=== PATIENT | female | born 1990 | race Caucasian/White ===

== ENCOUNTER → 2018-09-10 20:10 | Observation (INO) ==
[2018-09-10 17:54] VITALS: BP 117/62
--- NOTE | 2018-09-10 18:12 | OB/GYN Progress Note ---
Date of Encounter: 09/10/18 Time of Encounter: 18:09 - Assessment and Plan (1) 20 weeks gestation of Current Visit: Yes Status: Acute Urine pending Vaginosis panel pending Anticipate discharge home with PTL precautions and medications as needed if urine or vaginosis panel positive Follow up as scheduled in the office and PRN POC per consult with Dr Rosales. (2) Vaginal discharge during in second trimester Current Visit: Yes Status: Acute Subjective - Subjective Principal diagnosis: Vaginal Spotting Interval history: adri Zepeda at 20 weeks and 0 days presents to triage with c/o spotting with wiping today x 1. She states positive movement. She denies any pain, discharge, headaches, vision changes, epigastric pain, leaking of fluid, and contractions or cramping. She denies recent intercourse. She is seen by Dr Alonzo for her care. She has a history of a DVT prior to pregnancies and is Lovenox. She also has a history of prior LTCS. Antepartum ROS: movement normal Objective - Vital Signs Vital Signs: Vital Signs Temp Pulse Resp BP 09/10/18 17:48 97.7 F 82 14 117/62 Intake and Output 09/10/18 09/10/18 09/10/18 07:59 15:59 23:59 Other: Weight 94.6 kg Patient Weight 09/10/18 23:59 Weight 94.6 kg - Exam FHR comments: FHTs No contractions per palpation or toco Abdomen: Present: normal appearance, soft, gravid. Absent: tenderness Uterus: Present: normal. Absent: firm, tenderness Cervical dilation: closed per spec exam Comments: Spec exam; no blood noted to urethra, vaginal vault, or cervix. Moderate thick tracy/white malodorous discharge in vaginal vault
[2018-09-10 18:34] LABS: Bilirubin,Urine Negative (Negative); Blood,Urine Trace (Negative); Clarity,Urine Cloudy (Clear); Color,Urine Yellow (Yellow); Glucose,Urine (UA) Normal (Normal); Ketones,Urine Negative (Negative); Leukocyte Esterase,Urine Small (Negative); Nitrite,Urine Negative (Negative); Protein,Urine Negative (Neg-Trace); Specific Gravity,Urine 1.007 (1.010-1.025); Urobilinogen,Urine Normal (Normal)
[2018-09-10 19:07] LABS: Amphetamine Screen,Urine Negative ng/mL (Cutoff=1000); Barbiturate Screen,Urine Negative ng/mL (Cutoff=200); Benzodiazepines Screen,Urine Negative ng/mL (Cutoff=200); Cannabinoid Screen,Urine Negative ng/mL (Cutoff = 50); Cocaine Screen,Urine Negative ng/mL (Cutoff= 300); Opiate Screen,Urine Negative ng/mL (Cutoff=300); Phencyclidine Screen,Urine Negative ng/mL (Cutoff=25)
[2018-09-10 19:42] LABS: Candida DNA Not Detected (Not Detect); Gardnerella DNA Not Detected (Not Detect); Trichomonas DNA DETECTED (Not Detect)
[~2018-09-10 20:10] MED LIST: Ondansetron ODT 4 MG TAB.RAPDIS SL STA; metroNIDAZOLE 500 MG TABLET PO STA
== END | disposition home or self-care (01) ==
LOC: 1NENULAB
PROVIDERS: ADMIT Obstetrics & Gynecology; ATTEND Obstetrics & Gynecology

== ENCOUNTER 2018-12-25 15:01 | Observation (INO) ==
[2018-12-25 16:00] LABS: Amphetamine Screen,Urine Negative ng/mL (Cutoff=1000); Barbiturate Screen,Urine Negative ng/mL (Cutoff=200); Benzodiazepines Screen,Urine Negative ng/mL (Cutoff=200); Cannabinoid Screen,Urine Negative ng/mL (Cutoff = 50); Cocaine Screen,Urine Negative ng/mL (Cutoff= 300); Opiate Screen,Urine Negative ng/mL (Cutoff=300); Phencyclidine Screen,Urine Negative ng/mL (Cutoff=25)
[2018-12-25 16:11] LABS: Bacteria,Urine Many per hpf (None-Few); Bilirubin,Urine Negative (Negative); Blood,Urine Negative (Negative); Clarity,Urine Cloudy (Clear); Color,Urine Yellow (Yellow); Glucose,Urine (UA) Normal (Normal); Hyaline Casts,Urine None Seen per lpf (None-Few); Ketones,Urine 80 mg/dL (Negative); Leukocyte Esterase,Urine Small (Negative); Nitrite,Urine Negative (Negative); Protein,Urine Trace mg/dL (Neg-Trace); Specific Gravity,Urine 1.024 (1.010-1.025); Squamous Epithelial Cell,Urine Many per lpf (None-Few); Urobilinogen,Urine Normal (Normal); WBC,Urine 30-50 per hpf (0-3)
[2018-12-25 16:23] LABS: RBC,Urine 0-3 per hpf (0-3)
[2018-12-25 21:34] LABS: Candida DNA Not Detected (Not Detect); Gardnerella DNA Not Detected (Not Detect); Trichomonas DNA Not Detected (Not Detect)
== END 2018-12-25 20:10 | disposition home or self-care (01) ==
LOC: 1NENULAB
PROVIDERS: ADMIT Student in an Organized Health Care Education/Training Program; ATTEND Student in an Organized Health Care Education/Training Program

== ENCOUNTER 2019-01-08 04:22 | Inpatient (IN) ==
--- NOTE | 2019-01-08 03:59 | OB/GYN History & Physical ---
Date of Encounter: 01/08/19 Time of Encounter: 03:57 Assessment and Plan (1) 37 weeks gestation of Current visit: Yes Status: Acute 28yo at 37+1wks GA who presents SROM'd, in active labor 1. TOLAC - cecy ~6.5# - GBS negative, VTX presentation - SROM'd clear fluid after 1600 (01/07) - denies issues with vaginal bleeding - contractions q2-5 minutes, adequate movement - hx of prior CS for BREECH presentation; prime TOLAC candidate (early term, prior CS for presentation, SROM'd) - epidural discussed with patient, will consult anesthesia given blood clot hx - desires TUBAL LIGATION, OK to perform or laparoscopically after PP visit 2. HX OF DVT - patient reports hx of blood clot at age 17 and 22 - patient has been followed by [facility] and Dr. Alonzo - currently taking lovenox SQ ppx dose BID - last dose was administered at 2200 on 01/07 3. A1GDM - co-managed by [facility] - diet-controlled DM per patient - failed 1hr GTT and 3hr GTT - patient missed by recent US with [facility] on 01/06 - cecy ~6.5#-7# Dispo: Patient admitted to labor and delivery for TOLAC. SROM'd at 37 wks GA with 1 prior CS for breech presentation. MD JYOTSNA History of Present Illness Chief complaint: 28YO TOLAC WITH CONTRACTION(S) and SROM HPI: Ms. Kaur is a 28 year old female at 37+1wks GA with hx of 1 prior CS at term for breech delivery (measuring 6#11oz). GBS negative. Patient with UTD PNC with Dr. Alonzo. Patient consented for TOLAC today. Reason for first CS delivery was 2/2 presentation of only. Patient presents today with contraction(S), leaking of fluids (confirmed SROM), and already at 1-2cm dilation. Because her last delivery was not 2/2 CPD or maternal anatomy, this is a prime candidate for a TOLAC. Consent was signed with the patient. SHe is aware of the risk of rCS should there be any concern for well-being. SHe is also aware that there is a risk of uterine rupture, but given her gestational age and size of infant, this is a smaller percentage then someone who is completely term (39+wks GA) and uncontrolled GDM. Patient was diet controlled ONLY, did not require medication for her A1GDM. Co- managed patient with MFM ([facility]). VERTEX presentation today, GBS negative. Will plan for expectant management. OK to start pitocin if patient is to stop progressing. OK for anesthesia to be consulted for patient to have epidural. OF NOTE: patient does have a hx of two prior blood clots at age 17 and 22. Patient is currently on twice daily prophylactic SQ lovenox injection(S). Her last injection was administered at 2200 on (01/07). Past Med Surg Social Fam HX - Past Medical History Medical history: DVT, kidney stones Additional medical history: dvt x 2, hypothyroidism Psychiatric history: anxiety, bipolar, depression - Past Surgical History Surgical History: Additional surgical history: C/S 01/29/2015 - Social History Smoking Status: Current every day smoker Packs per day: 1/2 Smokeless Tobacco Status: No Alcohol use: none Drug use: none - Family History Mother Living Status: Still Living Hx Family Cardiac Disorders: Yes (chronic hypertension) Hx Family Respiratory Disorders: No Hx Family Cancer: No Hx Family GI Disorders: No Hx Family Endocrine Disorder: Yes (diabetes) Hx Family Neuromuscular Disorders: No Hx Family Neurologic Disorders: No Hx Family HEENT Disorders: No Hx Family Autoimmune Disorders: No Obstetrical History - Pregnancies : 2 Para: 1 Term: 1 : 0 Ab's: 0 Livin Medications and Allergies Enoxaparin [Lovenox] 1 % SQ BID 11/18/18 [History] Vit 108/Iron/Folic AC [ One Tablet] 1 tab PO DAILY 11/18/18 [History] Levothyroxine [Synthroid] 125 mcg PO 0630 01/08/19 [History] Allergy/AdvReac Type Severity Reaction Status Date / Time No Known Allergies Allergy Verified 01/08/19 03:34 Exam - Constitutional Constitutional: well developed, well nourished, no acute distress, average body habitus - HEENT HEENT: Normocephaly, Mucus Membranes Moist - Neck Neck exam: full ROM - Lungs Respiratory exam: CTAB - Cardiovascular Cardiovascular exam: RRR - Abdomen Abdomen: Present: bowel sounds normal - Extremities Extremities exam: full ROM Deep Tendon Reflex Grade: 2+ Normal - Vagina Vagina: Present: normal moisture - Cervix Dilation: 2 Effacement: 60 Station: -2 - Uterus Uterus exam: Present: normal size, normal contour - Anus/Rectum Anus/Rectum: Present: normal perianal skin Results All other labs normal.
[~2019-01-08 04:22] MED LIST changes: +Famotidine 20 MG/2 ML VIAL IVP PRN; +Metoclopramide 10 MG/2 ML VIAL IVP PRN; +Naloxone 0.4 MG/ML INJ IVP PRN; -Ondansetron ODT 4 MG TAB.RAPDIS SL STA; +Ringers Solution, Lactated 1,000 ML IVC SCH; -metroNIDAZOLE 500 MG TABLET PO STA
[2019-01-08 04:45] LABS: Basophils % 0.1 %; Eosinophils % 0.3 %; Hematocrit 40.9 % (35.3-44.9); Hemoglobin 13.5 g/dL (11.5-15.4); Immature Granulocytes % 1.3 % (0-4); Lymphocytes # 1.8 K/mcL (0.6-4.6); Lymphocytes % 18.9 %; Mean Corpuscular Hemoglobin 28.4 pg (28.0-33.3); Mean Corpuscular Volume 86.1 fL (83.0-100.0); Mean Platelet Volume 10.9 fL (9.4-12.4); Monocytes # 0.5 K/mcL (0.0-1.3); Monocytes % 5.1 %; Platelet Count 215 K/mcL (140-400); Red Blood Count 4.75 M/mcL (3.82-4.97); Red Cell Distribution Width 15.6 % (11.5-14.5); Segmented Neutrophils % 74.3 %; White Blood Count 9.4 K/mcL (4.3-11.1)
[2019-01-08 04:51] LABS: Amphetamine Screen,Urine Negative ng/mL (Cutoff=1000); Barbiturate Screen,Urine Negative ng/mL (Cutoff=200); Benzodiazepines Screen,Urine Negative ng/mL (Cutoff=200); Cannabinoid Screen,Urine Negative ng/mL (Cutoff = 50); Cocaine Screen,Urine Negative ng/mL (Cutoff= 300); Opiate Screen,Urine Negative ng/mL (Cutoff=300); Phencyclidine Screen,Urine Negative ng/mL (Cutoff=25)
[2019-01-08] MEDS ORDERED: *HR* Nalbuphine 10 MG/ML AMPUL IM PRN (05:14)
[2019-01-08] MEDS: *HR* Nalbuphine 10 MG/ML AMPUL IV PRN ×2 (05:37→08:36)
--- NOTE | 2019-01-08 08:45 | Event Note ---
Date of Encounter: 01/08/19 Time of Encounter: 08:34 28 yo @ 37.1 wga currently undergoing TOLAC. She's uncomfortable with her ctxs & requests IV pain meds. She desires epidural in future. SVE: /-2 FHRT: 125/mod ngozi/+accels/no decels TOCO: q 2-4 mins A/P: 1. TOLAC - Pain control PRN - OK for epidural 12 hrs after last 40mg Lovenox dose, 1000 today per Anesthesia - Cont EFM & TOCO - Consider initiating oxytocin in future 2. HX OF DVT - H/o LE DVTs at age 17 and 22 s/p OCPs, no coagulopathy w/u performed to pt's knowledge - On Lovenox SQ 40mg BID, last dose @ 2200 on 01/07 - Plan to restart 6-12hrs after delivery 3. A1GDM - Well controlled antepartum - cecy ~6.5#-7# Cris Barger DO
[2019-01-08] MEDS ORDERED: Epidural Premix (fent/bupiv) 110 ML EP ONE (10:05)
[2019-01-08] MEDS ORDERED: Epidural Premix (fent/bupiv) 110 ML EP SCH (10:15)
--- NOTE | 2019-01-08 10:48 | Anesthesia Evaluation PreOp ---
Date of Encounter: 01/08/19 Time of Encounter: 10:00 - Past History Planned Operation: ANA Cardiac History: Denies any Significant Hx Pulmonary History: Other (HO DVT AT 17Y.O. PROPHYLAXIS LOVENOX DURING , LAST DOSE 01/07/19 2200) BUTTON MAKER History: Denies Any Significant HX Other Medical History: Denies Any Significant HX, Other (GDM DIET CONTROLLED) Anesthesia History: No Prior Anesthetic Complications, Past Anesthesia : Yes Test: Positive Alcohol Use: none Drug use: none Medications and Allergies Enoxaparin [Lovenox] 1 % SQ BID 11/18/18 [History] Vit 108/Iron/Folic AC [ One Tablet] 1 tab PO DAILY 11/18/18 [History] Levothyroxine [Synthroid] 125 mcg PO 0630 01/08/19 [History] Allergy/AdvReac Type Severity Reaction Status Date / Time No Known Allergies Allergy Verified 01/08/19 03:34 - Meds/Allergy Pre-op Review Medications Reviewed: Yes Allergies Reviewed: Yes Beta Blockers on Current Med List: No Anesthesia Results - Labs 01/08/19 04:15 01/08/19 04:15 Anesthesia Exam - HEENT Pupil (Motor): Pupils equal Mallampati: II Teeth: Normal Oral Opening: Greater than 3 - BUTTON MAKER LOC: Oriented BUTTON MAKER Motor: Normal RUE, Normal LUE, Normal RLE, Normal LLE, Normal Face BUTTON MAKER Sensory: Normal: RUE, LUE, RLE, LLE, Face - Cardiac Rhythm: Regular Murmur: None JVD: No Carotid Bruit: No - Pulmonary Breath Sounds: bilateral Clear Respiratory Effort: Symmetrical Anesthesia Assess/Plan ASA Score: 2 Level of consciousness: Cooperative Anesthetic Plan: Epidural
--- NOTE | 2019-01-08 10:52 | Anesthesia Procedures ---
Date of Encounter: 01/08/19 Time of Encounter: 10:00 Procedures: Anesthesia - Epidural/Spinal Patient ID/Chart reviewed: Yes Patient examined: Yes OB Eval: Gestational age: 37.1 OB Eval: : 2 OB Eval: Hx Para: 1 OB Eval: Dilated at (cm): 3 OB Eval: Contractions: Non-stressed pattern Consent Obtained: Yes Site Prep: Aseptic Technique, Sterile prep and drape, Povidone-Iodine 1% Patient position: upright Amount of Local Anesthetic used: 3 Touhy Needle Gauge: 18 Touhy Needle Depth (cm): 6 Catheter Depth at Skin (cm): 12 Test Dose (1.5% Lido + Epi): Volume given (mls): 3 Test Dose Result: Negative Loading Dose: 0.25% Marcaine (mls): 5 Loading Dose Administered: Thru Catheter Infusion Med: 0.125% Bupivacaine w/ 2 mcg/ml Fentanyl Infusion Rate (mls/hr): [address]: Tegaderm, Tape Interspace Used: L4-L5 Loss of Resistance (SUBHASH): Yes Blood: No CSF: No Paresthesia: No Procedure: tolerated procedure well VSS FHTS throughout see nursing notes.
[2019-01-08] MEDS ORDERED: EPHEDrine 50 MG/ML VIAL ONE (11:50)
[2019-01-08] MEDS ORDERED: Ondansetron 4 MG/2 ML VIAL ONE (11:50)
[2019-01-08] MEDS ORDERED: Oxytocin 20 units/ LR 1000 mL 20 UNIT/1,000 ML BAG IVC SCH ×2 (12:00→20:09)
--- NOTE | 2019-01-08 17:10 | OB/GYN Procedure Note ---
Delivery - Delivery Date: 01/08/19 Provider: Cris Barger Intrapartum events: none Delivery induction: none Delivery augmentation: pitocin Delivery monitor: external FHT, external uterine Anesthesia: epidural Quantitated Blood Loss: 500 - (s) Infant A Infant Delivery Date: 01/08/19 Infant Delivery Time: 16:29 Presentation: vertex Position: OA Route of delivery: Gender: Male Viability: Viable Pounds: 5 Ounces: 6 Weight Gram: 2425 kg at 1 minute: 8 at 5 mins: 9 Shoulder Dystocia: not encountered Placenta: spontaneous Cord: nuchal cord, 3 umbilical vessels, delivered through nuchal - Repair Episiotomy: none Laceration Description: Periurethral (B/L 1st degree), Perineal - 2nd Degree - Complications Delivery complications: uterine atony Delivery comments: The patient progressed to complete with epidural anesthesia. She pushed to deliver a live male over an intact perineum. The head delivered in OA position. A nuchal cord was identified and the body was delivered through it. The right anterior shoulder delivered with ease followed by the rest of the body. The 's mouth was bulb suctioned after safe transfer to the maternal abdomen for further care by RN and mother-baby skin to skin time. After pulsation of the umbilical cord had ceased, the cord was clamped 2 and cut by the father. The placenta was expressed intact and held for possible testing. After delivery of the placenta a heavy flow of blood was noted from the cervix, despite oxytocin infusion. 0.2 mg of Methergine was given IM. The vaginal bleeding significantly decreased after this. The cervix, vagina and perineum were inspected. Hemostatic bilateral periurethral lacerations were noted, not repaired. A 1-1/2 cm right-sided second-degree perineal laceration was noted and repaired with 3-0 Vicryl in a running locked fashion. APGARS 8/9. Weight 5# 6 ozs. EBL was [address] Barger was present for delivery. - Disposition Mom disposition: stable in LDR Agenda disposition: stable in LDR
[2019-01-08] MEDS ORDERED: Methylergonovine 0.2 MG/ML AMPUL IM ONE (18:37)
[2019-01-08] MEDS ORDERED: miSOPROStol 100 MCG TABLET PO ONE (18:37)
[2019-01-08] MEDS ORDERED: *HR* Oxytocin 10 UNIT/ML VIAL IM ONE (18:37)
[2019-01-08] MEDS ORDERED: Rho Immune Globulin 1,500 UNIT SYRINGE IM PRN (20:09)
[2019-01-08] MEDS ORDERED: Measles/Mumps/Rubella Vacc 0.5 ML VIAL SQ PRN (20:09)
[2019-01-08] MEDS: *HR* Enoxaparin 40 MG/0.4 ML SYRINGE SQ SCH (23:03)
[2019-01-09 05:47] LABS: Basophils % 0.2 %; Eosinophils # 0.1 K/mcL (0.0-0.6); Eosinophils % 0.5 %; Hematocrit 34.1 % (35.3-44.9); Immature Granulocytes % 0.6 % (0-4); Lymphocytes # 1.5 K/mcL (0.6-4.6); Lymphocytes % 15.6 %; Mean Corpuscular HGB Conc 33.1 g/dL (31.6-35.5); Mean Corpuscular Hemoglobin 28.3 pg (28.0-33.3); Mean Corpuscular Volume 85.5 fL (83.0-100.0); Mean Platelet Volume 10.7 fL (9.4-12.4); Monocytes # 0.6 K/mcL (0.0-1.3); Monocytes % 6.4 %; Neutrophils # 7.4 K/mcL (1.6-8.9); Platelet Count 184 K/mcL (140-400); Red Blood Count 3.99 M/mcL (3.82-4.97); Red Cell Distribution Width 15.5 % (11.5-14.5); Segmented Neutrophils % 76.7 %; White Blood Count 9.6 K/mcL (4.3-11.1)
[2019-01-09 06:02] LABS: Hemoglobin 11.3 g/dL (11.5-15.4)
[2019-01-09] MEDS ORDERED: Ringers Solution, Lactated 1,000 ML ONE (07:06)
--- NOTE | 2019-01-09 08:16 | Anesthesia Evaluation PreOp ---
Date of Encounter: 01/09/19 Time of Encounter: 08:20 - Past History Planned Operation: BPS Cardiac History: Other (Hx DVT on Lovenox) Pulmonary History: Denies Any Significant HX ROTARY ENGRAVER History: Denies Any Significant HX Other Medical History: Denies Any Significant HX, Other (Obese) Anesthesia History: No Prior Anesthetic Complications : No Alcohol Use: none Drug use: none Medications and Allergies Enoxaparin [Lovenox] 1 % SQ BID 11/18/18 [History] Vit 108/Iron/Folic AC [ One Tablet] 1 tab PO DAILY 11/18/18 [History] Levothyroxine [Synthroid] 125 mcg PO 0630 01/08/19 [History] Allergy/AdvReac Type Severity Reaction Status Date / Time No Known Allergies Allergy Verified 01/08/19 03:34 - Meds/Allergy Pre-op Review Medications Reviewed: Yes Allergies Reviewed: Yes Beta Blockers on Current Med List: No Anesthesia Results - Labs 01/09/19 05:25 01/08/19 04:15 Anesthesia Exam Vital Signs/O2 Sat/Glucose, Most Current Temp Pulse Resp BP Pulse Ox 01/09/19 04:55 98.1 F 75 16 105/65 96 Height: 5'2 Weight: 192 lbs NPO (# of Hours): MN Pain Scale: 0 - HEENT Pupil (Motor): Pupils equal, EOMI Mallampati: II Teeth: Normal Oral Opening: Greater than 3 - ROTARY ENGRAVER LOC: Oriented ROTARY ENGRAVER Motor: Normal RUE, Normal LUE, Normal RLE, Normal LLE, Normal Face ROTARY ENGRAVER Sensory: Normal: RUE, LUE, RLE, LLE, Face - Cardiac Rhythm: Regular Murmur: None JVD: No Carotid Bruit: No - Pulmonary Breath Sounds: bilateral Clear Respiratory Effort: Symmetrical Anesthesia Assess/Plan ASA Score: 2 Level of consciousness: Cooperative, Oriented Anesthetic Plan: General, Epidural Autologous Blood: No Monitoring Plan: Standard Monitors Recovery Plan: PACU (Discussed GA, possible RA, discussed high likelihood epidural not viable, agrees to proceed)
[2019-01-09] MEDS ORDERED: Lidocaine -MPF 2% 2 ML VIAL ONE (08:17)
[2019-01-09] MEDS ORDERED: Ondansetron 4 MG/2 ML VIAL ONE (08:17)
[2019-01-09] MEDS ORDERED: Dexamethasone 4 MG/ML VIAL ONE (08:17)
[2019-01-09] MEDS ORDERED: *HR* Succinylcholine 200 MG/10 ML VIAL IVP ONE (08:17)
[2019-01-09] MEDS ORDERED: *HR* FentaNYL (PF) 100 MCG/2 ML VIAL ONE (08:18)
[2019-01-09] MEDS ORDERED: *HR* Midazolam HCl 2 MG/2 ML VIAL ONE (08:18)
[2019-01-09] MEDS ORDERED: *HR* Propofol 200 MG/20 ML VIAL IVP ONE (08:18)
[2019-01-09] MEDS ORDERED: Lidocaine HCL 4 ML Topical Solution (Laryng-O-Jet Kit Sterile Pak) TP ONE (08:20)
[2019-01-09] MEDS ORDERED: Ketorolac 30 MG/ML VIAL ONE (08:21)
[2019-01-09] MEDS ORDERED: Famotidine 20 MG/2 ML VIAL ONE (08:23)
[2019-01-09] MEDS ORDERED: Acetaminophen IV 1,000 MG/100 ML INFUS..BTL ONE (08:23)
[2019-01-09] MEDS ORDERED: *HR* Rocuronium Bromide 50 MG/5 ML VIAL ONE (08:23)
[2019-01-09] MEDS ORDERED: Neostigmine Methylsulfate 3 MG/3 ML SYRINGE ONE (08:24)
[2019-01-09] MEDS ORDERED: Bupivacaine/EPI 1:200k 0.25%PF 10 ML VIAL INFILT ONE (08:48)
[2019-01-09] MEDS ORDERED: Prenatal Vit/FA 1 EACH TABLET PO SCH (09:00)
[2019-01-09] MEDS ORDERED: *HR* Phenylephrine 10 MG/ML VIAL ONE (10:07)
[2019-01-09] MEDS ORDERED: *HR* Promethazine 25 MG/ML VIAL IVP PRN (10:32)
[2019-01-09] MEDS ORDERED: Ondansetron 4 MG/2 ML VIAL IVP ONE (10:32)
[2019-01-09] MEDS ORDERED: *HR* OxyCODONE Immed Rel 5 MG TABLET PO PRN (10:32)
--- NOTE | 2019-01-09 11:01 | OB/GYN Procedure Note ---
Laparoscopy Procedure - Diagnosis Date of procedure: 01/09/19 Pre-op diagnosis: other (Bilateral partial salpingectomy (), NOT laparoscopic.) - Procedure Laparoscopy procedure: other (Attempted bilateral partial salpingectomy via umbilical mini-laparoscopy, single incision ~4cm in diameter.) Surgeon: Daksha Braun Was there an dietetic assistant present: No Anesthesia Type: General Estimated blood loss (cc): 5 Complications: intraoperative hemorrhage (Able to safely and adequately enter the abdominal cavity however omentum significantly impeding visualization of the adnexa and appeared to be tacked down inferiorly. Concern for adhesion(S) from prior CS. Despite adequate palpation of BOTH adnexa and tubes, we were unable to grasp with reg retractors safely for tubal salpingectomy.) Specimens: other (none.) Disposition: PACU Narrative: OPERATIVE REPORT: DIAGNOSIS: TUBAL STERILIZATION, PROCEDURE ATTEMPTED: BILATERAL PARTIAL SALPINGECTOMY, POSTOPERATIVE DX: TUBES WITH PATENCY, UNABLE TO STERILIZE SURGEON: DAKSHA BRAUN MD EBL: 5ML UOP: STRAIGHT CATH'D PREOPERATIVELY ANESTHESIA: GENERAL SPECIMENS: NONE PROCEDURE DETAILS: PATIENT WAS HEAVILY COUNSELED PRIOR TO PERFORMANCE OF THE TUBAL STERILIZATION REGARDING RISKS OF THE PROCEDURE, RISK OF REGRET, OTHER OPTIONS FOR CONTRACEPTION, AND THE POTENTIAL FOR FAILURE. PATIENT WAS AWARE PRIOR TO PERFORMING THE PROCEDURE THAT WE MAY NOT BE ABLE TO ADEQUATELY VISUALIZE EITHER ADNEXA WITHOUT EXTENDING THE TUBAL LIGATION INCISION TO BECOME AN OPEN PROCEDURE. THE PATIENT WAS AWARE OF THIS RISK AND WAS OKAY WITH ATTEMPTING IT REGARDLESS. SHE WAS TAKEN TO THE OR WHERE GENERAL ANESTHESIA WAS FOUND TO BE ADEQUATE. 4CM INCISION WAS MADE HORIZONTALLY, INFERIORLY TO THE UMBILICUS. USING S-RETRACTORS AT EITHER ANGLE WE DISSECTED DOWN TO THE LEVEL OF THE FASCIA. USING JAMILA PICK UPS, WE TENTED UP THE FASCIA, AND ENTERED THE ABDOMEN WITH METZENBAUM SCISSORS. TWO SUTURES WERE PLACED AT EITHER SIDE OF THE FASCIAL INCISION. USING S RETRACTORS, WE CONTINUED TO DISSECT DOWN TO THE LEVEL OF THE OMENTUM AND PERITONEUM. WE WERE ABLE TO ENTER THE ABDOMEN AND APPRECIATED BILATERAL ADNEXA AND TUBES BUT GIVEN BODY HABITUS AND SCAR TISSUE, WE WERE UNABLE TO SAFELY BRING THE TUBES TO THE LEVEL OF VISIBILITY AND REMOVAL. HEMOSTASIS WAS APPRECIATED PRIOR TO CLOSURE OF THE FASCIA. WE THEN USED 3-0 CHROMIC SUTURE TO CLOSE SUBCUTANEOUS, AND 3-0 VICRYL ON THE SUBCUTICULAR SKIN INCISION. DERMABOND USED ON THE SKIN INCISION. HEMOSTASIS WAS AGAIN APPRECIATED. PATIENT WAS SENT TO PACU FOR RECOVERY AND BACK TO . DAKSHA BRAUN MD OBGYN
--- NOTE | 2019-01-09 11:14 | Anesthesia Evaluation Post Op ---
Date of Encounter: 01/09/19 Time of Encounter: 11:14 - Vital Signs Vital Signs: Vital Signs - Last 8 Hours Temp Pulse Resp BP Pulse Ox 01/09/19 11:04 70 16 118/65 100 01/09/19 10:54 85 18 116/65 99 01/09/19 10:44 98.9 F 73 16 105/53 95 01/09/19 08:25 97.9 F 79 16 109/64 96 01/09/19 07:35 97.6 F 76 14 103/59 98 01/09/19 04:55 98.1 F 75 16 105/65 96 Intake and Output 01/08/19 01/09/19 01/09/19 23:59 07:59 15:59 Output Total 300 / 300 450 / 455 5 / 455 Balance -300 / -300 -450 / -455 -5 / -455 Output: Urine 300 / 300 450 / 450 Estimated Blood Loss 5 / 5 Other: Weight 87.3 kg Patient Weight 01/09/19 23:59 Weight 87.3 kg - Lungs Lungs: Clear Ascult./Percussion - Airway Airway: Non-obstructed - Cardiovascular Regular Rate, Baseline Rhythm - Mental Status Mental Status: Alert & Oriented, Answers Appropriately - Pain Pain Scale: 5 (tolerable with pain meds ) Pain Scale used: Numeric (1 - 10) - Nausea Vomiting Nausea Vomiting: Not Present - Hydration Hydration: Tolerates oral liquids, Ice chips - Discharge PostOp Status: Transfer Patient to floor
--- NOTE | 2019-01-09 11:42 | Discharge Summary ---
Date of Encounter: 01/09/19 Time of Encounter: 11:36 - Discharge Diagnosis (1) 37 weeks gestation of Priority: Primary Status: Acute Comments: 28YO FEMALE S/P AT 37+1WKS GA, DISCHARGED TO HOME TODAY ON PPD#1. PATIENT WAS MEETING ALL MILESTONES FOR DISCHARGE. ON PPD#1 SHE HAD AN ATTEMPTED BPS BUT GIVEN BODY HABITUS AND OMENTAL SCARRING WE WERE UNABLE TO SUCCESSFULLY DO SO. WE DISCUSSED LAPAROSCOPY WITH THE PATIENT <6WKS PP FOR MEDICAID COVERAGE. PATIENT WAS AMBULATING, TOLERATING REGULAR DIET, PASSING FLATUS. WE DISCUSSED HAVING A DEPO-PROVERA INJECTION UPON ADMISSION FOR CONTRACEPTION UNTIL SHE IS SCHEDULED FOR A TUBAL LIGATION BY LAPAROSCOPY. BABY WAS DOING WELL AT THE TIME OF DISCHARGE. HGB WAS STABLE. PATIENT TO F/U WITH OBGYN IN 2 WEEKS FOR SCHEDULING LAPAROSCOPIC TUBAL LIGATION. GIVEN PATIENT WITH HX OF DVT AT AGE 17 AND 22YO, SHE WILL CONTINUE HER PP LOVENOX (DAILY). PATIENT WITH MEDS AT GIVEN. OK TO GIVE 1 DOSE PRIOR TO DC TODAY THIS WAS HELD FOR ATTEMPTED BPS. MD JYOTSNA - Discharge Medications Prescriptions: No Action Vit 108/Iron/Folic AC [ One Tablet] 1 tab PO DAILY Enoxaparin [Lovenox] 1 % SQ BID Levothyroxine [Synthroid] 125 mcg PO 0630 Home Medications: Enoxaparin [Lovenox] 1 % SQ BID 11/18/18 [History] Vit 108/Iron/Folic AC [ One Tablet] 1 tab PO DAILY 11/18/18 [History] Levothyroxine [Synthroid] 125 mcg PO 0630 01/08/19 [History] Allergies/Adverse Reactions: Allergy/AdvReac Type Severity Reaction Status Date / Time No Known Allergies Allergy Verified 01/08/19 03:34 Data Procedures and tests throughout hospitalization: Laboratory Tests 01/08/19 01/08/19 01/08/19 04:15 04:15 04:15 WBC 9.4 RBC 4.75 Hgb 13.5 Hct 40.9 MCV 86.1 MCH 28.4 MCHC 33.0 RDW 15.6 H Plt Count 215 MPV 10.9 Immature Gran % 1.3 Seg Neutrophils % 74.3 Lymphocytes % 18.9 Monocytes % 5.1 Eosinophils % 0.3 Basophils % 0.1 Neutrophils # 7.0 Lymphocytes # 1.8 Monocytes # 0.5 Eosinophils # 0.0 Basophils # 0.0 Glucose 74 Urine Opiates Screen Negative Ur Buprenorphine Scrn Negative Ur Barbiturates Screen Negative Ur Phencyclidine Scrn Negative Ur Amphetamines Screen Negative U Benzodiazepines Scrn Negative Urine Cocaine Screen Negative U Marijuana (THC) Screen Negative Ur Drug Screen Interp See Below 01/09/19 05:25 WBC 9.6 RBC 3.99 Hgb 11.3 L D Hct 34.1 L MCV 85.5 MCH 28.3 MCHC 33.1 RDW 15.5 H Plt Count 184 MPV 10.7 Immature Gran % 0.6 Seg Neutrophils % 76.7 Lymphocytes % 15.6 Monocytes % 6.4 Eosinophils % 0.5 Basophils % 0.2 Neutrophils # 7.4 Lymphocytes # 1.5 Monocytes # 0.6 Eosinophils # 0.1 Basophils # 0.0 Glucose Urine Opiates Screen Ur Buprenorphine Scrn Ur Barbiturates Screen Ur Phencyclidine Scrn Ur Amphetamines Screen U Benzodiazepines Scrn Urine Cocaine Screen U Marijuana (THC) Screen Ur Drug Screen Interp Labs on day of discharge: Labs from last 24 hours 01/09/19 05:25 WBC 9.6 RBC 3.99 Hgb 11.3 L D Hct 34.1 L MCV 85.5 MCH 28.3 MCHC 33.1 RDW 15.5 H Plt Count 184 MPV 10.7 Immature Gran % 0.6 Seg Neutrophils % 76.7 Lymphocytes % 15.6 Monocytes % 6.4 Eosinophils % 0.5 Basophils % 0.2 Neutrophils # 7.4 Lymphocytes # 1.5 Monocytes # 0.6 Eosinophils # 0.1 Basophils # 0.0 Date of admission: 01/08/19 04:22 Primary care physician: GAVIN Consults: 01/08/19 20:09 Consult to Medical Program Specialist [CONS] Routine Comment: Vaginal delivery, consult needed Discharging clinician: Renetta Becerra Anticipated date of discharge: 01/09/19 - Patient Status Disposition: Home, Self-Care Condition: Good Functional capacity at discharge: independent ambulation Overall status at discharge: patient is progressing back to baseline - Discharge Instructions Hospital Course DINKEY DRIVER Time Attestation: Total time spent providing and/or coordinating discharge services: Exam - Constitutional Vitals: Temp Pulse Resp BP Pulse Ox 97.3 F L 65 14 115/63 98 01/09/19 11:14 01/09/19 11:14 01/09/19 11:14 01/09/19 11:14 01/09/19 11:14 General appearance IM: A&O X 3 - Respiratory Respiratory exam: Present: CTAB - Cardiovascular Cardiovascular exam IM: Present: RRR - GI/Abdominal GI/Abdominal exam IM: normal bowel sounds Incision: normal, dry, intact - Rectal Rectal exam: deferred - Uterus Position: 2 Fingers Below Umbilicus - Extremities Exam Extremities exam IM: Present: full ROM, normal inspection - Neurological Exam Neurological exam: CN II-XII intact - VTE Reasons for not Prescribing Prophylaxis: Medical contraindication
[2019-01-09] MEDS: Ibuprofen 600 MG TABLET PO SCH ×2 (12:36→12:49)
[2019-01-09] MEDS: *HR* Enoxaparin 40 MG/0.4 ML SYRINGE SQ SCH (12:37)
[2019-01-09] MEDS: Acetaminophen 325 MG TABLET PO SCH (12:50)
[2019-01-09 14:53] VITALS: BP 105/62
== END 2019-01-09 18:38 | disposition home or self-care (01) | DRG 542 ==
LOC: 1NENULAB → 1NENUOBS 20:07
PROVIDERS: ADMIT Advanced Practice Midwife; ATTEND Advanced Practice Midwife